=== PATIENT | female | born 1970 | race Caucasian/White ===

== ENCOUNTER 2019-06-01 10:25 | Emergency (ER) | payer MEDICAID ==
[~2019-06-01] VITALS: Ht 157.5 cm; Wt 68.0 kg
[2019-06-01 10:31] VITALS: Ht 157.5 cm; Wt 68.0 kg
[2019-06-01 11:45] VITALS: BP 124/72
== END 2019-06-01 11:54 | disposition home or self-care (01) ==
LOC: ED 10:25
DX: K59.00 Constipation, unspecified (principal)
CPT/HCPCS: J1885

== ENCOUNTER 2020-04-26 12:49 | Emergency (ER) | payer OTHER ==
[~2020-04-26] VITALS: Ht 160 cm; Wt 65.3 kg
[2020-04-26 12:56] VITALS: BP 109/80; Ht 160 cm; Wt 65.3 kg
== END 2020-04-26 15:05 | disposition home or self-care (01) ==
LOC: ED 12:49
DX: B35.6 Tinea cruris (principal)